=== PATIENT | female | born 1970 | race Caucasian/White ===

== ENCOUNTER → 2018-02-16 14:06 | Outpatient (CLI) | payer OTHER, SELFPAY ==
--- NOTE | 2018-02-16 14:12 | RAD_ITS ---
STUDY: X-RAY - LUMBAR SPINE REASON FOR EXAM: Female, 47 years old. Low back pain x1 month TECHNIQUE: 5 view(s) of the lumbar spine were obtained. COMPARISON: None FINDINGS: Normal lumbar lordosis. There is a mild levoscoliosis of the lumbar spine. There is a normal alignment of the vertebrae in the lateral view. Normal vertebral bodies and endplates. Normal disc space heights. The soft tissue structures are unremarkable. RAD/L/S Spine Min 4 Views IMPRESSION: No acute findings Levoscoliosis Electronically Signed: Andreas Fuentes MD at 13:49 EDT , Service support ,
== END ==
PROVIDERS: Family Provider Family Medicine; PCP Family Medicine; Referring Provider Family Medicine; Visit Provider Family Medicine
DX: M54.41 Lumbago with sciatica, right side (principal)
CPT/HCPCS: 72110

== ENCOUNTER 2018-04-15 10:30 | Outpatient (RCR) | payer OTHER, SELFPAY ==
--- NOTE | 2018-02-19 07:46 | HP.PTEVAL ---
Patient's Visit Information BRANDY SIMS is a 47 year old F referred to Physical Therapy by Deyvi Sam with a diagnosis of RIGHT LUMAGO WITH SCIATICA. Date of Evaluation: 02/18/18 Physical Therapist: Carlo Alvarado PT, - Visit Plan Frequency: 2x /Week Duration: 4 Weeks Plan: MCKEZIE EX'S WITH PROGRESSION OF FORCES ,PROGRESS DLS ABD/BACK ,POSTURAL EX'S,MODALITIES - Subjective Subjective: This 47 y/o male presents to physical terapy with right lumbago with scitica . Patient has had symptoms for 2 months with incdious onset of pain .Then 2weeks ago symptoms became worse located right L-S anterior thigh below knee to foot. Symptoms worse walking sitting,bending,lifting.Symptoms better gabepetin. Patient symptoms affects sleeping. Symptoms increase with coughing/sneezing. Denies parathesia/tingling.Symptoms described as ache. Patient seen DR and had x-rays. Patient symptoms affect QOL,job demands and housework tasks. 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 SOCAIL : - Pain Right Back Pain Intensity (Out of 10): 4 Pain Intensity Range: 10 Right Lower Extremity Pain Intensity (Out of 10): 4 Pain Intensity Range: 10 - Objective POSTURE:mild foward posture. PALPATION:unremarkable. GAIT: mild antalgic right leg slow chano due to pain. NEURO: denies parathesia/tingling ,reflexes L3-4,L4-5,L5-S1 2/3. MMT: quads right 4-/5 with ANR, hams 4/5 ,quads left,ankle 4/5. LUMBAR ROM: flexion mod loss pain,extension min ,side glides min loss pain to right. SYMMTRIES: aligns. FLEXABLITY: min hams - Special Tests L/S Slump test left side: Positive L/S Slump test right side: Negative L/S Left Straight Leg Raise: Negative L/S Right Straight Leg Raise: Positive Lumbar Standing: Flexion - Mechanical Response: No effect Lumbar Standing: Flexion - Symptoms During Testing: Increases Lumbar Standing: Flexion - Symptoms After Testing: Worse Lumbar Standing: Extension - Mechanical Response: No effect Lumbar Standing: Extension - Symptoms During Testing: Decreases Lumbar Standing: Extension - Symptoms After Testing: Better Lumbar Standing: Right Side Glides - Mechanical Response: No effect Lumbar Standing: Right Side [place] - Symptoms During Testing: Increases Lumbar Standing: Right Side [place] - Symptoms After Testing: No worse Lumbar Standing: Left Side [place] - Mechanical Response: No effect Lumbar Standing: Left Side [place] - Symptoms During Testing: Increases Lumbar Standing: Left Side [place] - Symptoms After Testing: No worse Lumbar Lying: Flexion - Mechanical Response: No effect Lumbar Lying: Flexion - Symptoms During Testing: Increases Lumbar Lying: Flexion - Symptoms After Testing: Worse Lumbar Lying: Extension - Mechanical Response: Increases motion Lumbar Lying: Extension - Symptoms During Testing: Centralizing Lumbar Lying: Extension - Symptoms After Testing: Better - Goals Goal 1:: Indenpandant with HEP. Goal Time Frame: 4-6 Weeks Goal 2:: Independant with posture/boday mechanics Goal Time Frame: 4-6 Weeks Goal 3:: Patient to improve lumbar ROM for function of recovery Goal Time Frame: 4-6 Weeks Goal 4:: Patient decrease lumbar pain by 75% or greater to improve function. Goal Time Frame: 4-6 Weeks Goal 5:: Patient to improve back owestry score 5-10points to improve QOL. Goal Time Frame: 4-6 Weeks - Rehabilitation Potential Physical Therapy Diagnosis: This patient has derrangement below knee possibel disc responds with symptoms worse with flexion responds better with extension and mechanical response with extension and posture correction thus benifit from skilled Rehabilitation Potential: Good - Anticipated Interventions Patient/Client Instruction: Educate patient on: Condition, Plan of Care For the Purpose of:: To decrease pain, To increase ROM, To improve muscle performance and motor function, To increase tolerance to activity/condition/position, To improve ability of physical actions for home/community/work/leisure, To improve gait and locomotor functions, To improve health of tissue, To decrease soft tissue restriction, To increase flexibility/ROM, To reduce risk of recurrence, To improve ability to perform tasks related to life management Therapeutic Exercise to Include: Strength training, Body mechanics, Postural training, Flexibilty training, Dynamic Lumbar Stabilization For the Purpose of:: To decrease pain, To increase ROM, To improve muscle performance and motor function, To improve ability of physical actions for home/community/work/leisure, To improve health of tissue, To decrease soft tissue restriction, To increase flexibility/ROM, To improve health and function, To improve ability to perform tasks related to life management Manual Therapy Techniques to Include: Mobilization Comment: LUMBAR For the Purpose of:: To decrease pain, To increase ROM, To improve muscle performance and motor function, To increase tolerance to activity/condition/position, To improve ability of physical actions for home/community/work/leisure, To improve health of tissue, To decrease soft tissue restriction, To increase flexibility/ROM TENS: Yes IF ES: Yes Cryotherapy (ice pack, ice massage): Yes Thermo therapy (hot pack): Yes Ultrasound (thermal/non thermal): Yes For the Purpose of:: To decrease pain, To decrease swelling/inflammation, To improve nutrient delivery to tissue, To increase oxygenation perfusion, To improve health of tissue, To decrease soft tissue restriction Thank you for the opportunity to evaluate your patient. For Medicare and Medicare HMO plans, please review the plan of care and approve it. It will need to be FAXED BACK to us at [phone] for Medicare purposes. Please let me know if there are questions or concerns regarding this plan of care. Physician Signature: Date:
--- NOTE | 2018-04-15 10:56 | HP.PTDCSUM ---
HP - PT D/C Summary It has been my pleasure to treat BENNETT SIMS under orders from Jaspal Sam MD, for the diagnosis of RIGHT LUMAGO WITH SCIATICA for a total of 17 visit(s). Discharge Date: Please see the following information for a summary of their discharge status. - Subjective Subjective: DOING WELL .. NO PAIN RETURN TO FUNCTION - Pain Right Back Pain Intensity (Out of 10): 0 Right Lower Extremity Pain Intensity (Out of 10): 0 - Overall Improvement % Improvement: 75 - Objective Objective/Function: POSTURE:WFL. GAIT:NORMAL MEENU. MMT: /. LUMBAR ROM: WNL ALL PALNES. -SLR - Goals Goal 1:: Indenpandant with HEP. Goal Progress: Goal Met Goal 2:: Independant with posture/boday mechanics Goal Progress: Goal Met Goal 3:: Patient to improve lumbar ROM for function of recovery Goal Progress: Goal Met Goal 4:: Patient decrease lumbar pain by 75% or greater to improve function. Goal Progress: Goal Met Goal 5:: Patient to improve back owestry score 5-10points to improve QOL. Goal Progress: Goal Met - Plan Plan: D/C TO HEP - D/C Information If there are questions or concerns regarding this patient's physical therapy, please feel free to call me at [phone]. Thank you for the referral of this patient. Sincerely, Carlo Alvarado, PT, Cert MDT, OCS
== END 2018-04-15 19:00 | disposition home or self-care (01) ==
LOC: PT 10:30
PROVIDERS: Family Provider Family Medicine; PCP Family Medicine; Referring Provider Family Medicine; Visit Provider Family Medicine
DX: M54.41 Lumbago with sciatica, right side (principal)
CPT/HCPCS: 97014; 97032; 97035; 97110; 97162; 97530; G0283

== ENCOUNTER → 2018-10-07 | Outpatient (CLI) | payer OTHER, SELFPAY ==
--- NOTE | 2018-10-07 07:57 | BI_ITS ---
MAMMOGRAPHY - BILATERAL SCREENING REASON FOR EXAM: Female, 47 years old. Routine annual screening examination. PERTINENT HISTORY: Grandmother with breast cancer. TECHNIQUE: Digital bilateral breast dipak (3D mammographic acquisition) in the CC and MLO projections. 2-D mediolateral oblique (MLO) and craniocaudad (CC) views of both breasts were obtained. CAD: Full Field Digital Mammography with Computer Added Detection was performed. COMPARISON: Comparison is made with prior study to July 14, 2016 and February 25, 2013. FINDINGS: Breast Composition: The breasts are heterogeneously dense, which may obscure small masses. There are no dominant masses or suspicious calcifications. Stable small bilateral benign appearing axillary lymph nodes. No other significant abnormalities are identified. There has been no significant change since the prior study. BI/SCREEN MAMM (CAD) W/DIPAK BILAT IMPRESSION: Stable bilateral screening mammogram. Yearly follow-up mammogram recommended. (A) ASSESSMENT CATEGORY: BIRADS Category 2: Benign. A letter regarding these results will be sent to the patient by the facility within 30 days. Approximately 10% of breast cancers are not detected by mammography. A normal mammogram should not delay biopsy of a clinically suspicious abnormality. [id number] Electronically Signed: Jameel Chau, at 9:03 EDT , Service support ,
== END | disposition home or self-care (01) ==
LOC: OPBI 07:55
PROVIDERS: Family Provider Family Medicine; PCP Family Medicine; Referring Provider Family Medicine; Visit Provider Family Medicine
DX: Z00.00 Encounter for general adult medical examination without abnormal findings (principal); Z12.31 Encounter for screening mammogram for malignant neoplasm of breast
CPT/HCPCS: 77063; 77067

== ENCOUNTER → 2018-11-18 | Outpatient (CLI) | payer OTHER, SELFPAY ==
[2015-03-20 11:13] VITALS: BMI 29.2
[2018-11-18 12:35] LABS: Hematocrit 42.1 % (37-47); Hemoglobin 13.9 g/dL (12.0-15.0); Mean Corpuscular Hgb 28.7 pg (27.0-32.0); Mean Platelet Vol. 11.5 fl (6.2-12.0); Platelet Count 356 K/mm3 (150-450); RBC Distribution Width CV 12.9 % (11.6-14.6); RBC Distribution Width SD 40.5 fl (35.1-43.9); Red Blood Count 4.84 M/mm3 (4.2-5.4); White Blood Count 7.7 K/mm3 (4.4-11.0)
[2018-11-18 13:05] LABS: Vitamin D,25 Hydroxy 66.3 ng/mL (29.95-100.01)
[2018-11-18 13:21] LABS: Anion Gap 4 (5-15); BUN 14 mg/dL (7-18); Calcium,Total 9.2 mg/dL (8.5-10.1); Chloride 105 mmol/L (98-107); Cholesterol 258 mg/dL (200); Creatinine, Serum 0.74 mg/dL (0.55-1.02); EST Glomerular Filtration Rate 90 mL/min (>60); Est Glom Filt Rate - Afr Amer 109 mL/min (>60); Glucose 84 mg/dL (74-106); High Density Lipoprotein 73 mg/dL; Potassium 3.9 mmol/L (3.5-5.1); Sodium Level 137 mmol/L (136-145); Thyroid Stim Hormone (TSH) 0.91 uIU/mL (0.358-3.74); Triglycerides 177 mg/dL; Very Low Density Lipoprotein 35 mg/dL (5-40)
== END | disposition home or self-care (01) ==
PROVIDERS: Family Provider Family Medicine; PCP Family Medicine; Referring Provider Family Medicine; Visit Provider Family Medicine
DX: Z00.00 Encounter for general adult medical examination without abnormal findings (principal); Z13.1 Encounter for screening for diabetes mellitus; Z13.220 Encounter for screening for lipoid disorders; Z13.29 Encounter for screening for other suspected endocrine disorder; Z13.21 Encounter for screening for nutritional disorder; N39.0 Urinary tract infection, site not specified
CPT/HCPCS: 36415; 80048; 80061; 82306; 84443; 85027; 87086; 87088

== ENCOUNTER → 2019-05-11 08:01 | Outpatient (CLI) | payer OTHER, SELFPAY ==
[2019-05-11 10:02] LABS: Absolute Neutrophil Count 3.9 X10^3/uL (2.0-7.7); Basophil# 0.05 X10^3/uL; Basophil% 0.8 % (0-1); Eosinophils% 1.6 % (0-5); Hematocrit 42.1 % (37-47); Hemoglobin 12.9 g/dL (12.0-15.0); Lymphocyte % 25.6 % (19-41); Mean Corp Hgb Conc 30.6 g/dL (32-36); Mean Corpuscular Hgb 26.9 pg (27.0-32.0); Mean Corpuscular Volume 87.9 fL (81-99); Mean Platelet Vol. 11.2 fl (6.2-12.0); Monocyte# 0.58 X10^3/uL; Monocyte% 9.3 % (0-10); NRBC Flagged by Analyzer 0 % (0-5); Neutrophil % 62.2 % (47-70); Platelet Count 353 K/mm3 (150-450); RBC Distribution Width SD 41.8 fl (35.1-43.9); Red Blood Count 4.79 M/mm3 (4.2-5.4); White Blood Count 6.3 K/mm3 (4.4-11.0)
[2019-05-11 10:21] LABS: AST(SGOT) 16 U/L (15-37); Alanine Aminotransfer ALT/SGPT 37 U/L (13-56); Albumin, Serum 3.6 g/dL (3.2-5.0); Alkaline Phosphatase 84 U/L (45-117); Anion Gap 5 (5-15); BUN 18 mg/dL (7-18); BUN/Creat Ratio 22.9 RATIO (10-20); Calcium,Total 9.3 mg/dL (8.5-10.1); Chloride 109 mmol/L (98-107); Creatinine, Serum 0.79 mg/dL (0.55-1.02); EST Glomerular Filtration Rate 84 mL/min (>60); Est Glom Filt Rate - Afr Amer 101 mL/min (>60); Globulin 3.6 g/dL (2.2-4.2); Glucose 85 mg/dL (74-106); Potassium 4.2 mmol/L (3.5-5.1); Protein, Total 7.2 g/dL (6.4-8.2); Sodium Level 140 mmol/L (136-145)
== END ==
PROVIDERS: Family Medicine; PCP Family Medicine; Referring Provider Family Medicine; Visit Provider Family Medicine
DX: R16.1 Splenomegaly, not elsewhere classified (principal)
CPT/HCPCS: 36415; 80053; 85025

== ENCOUNTER → 2019-05-13 07:21 | Outpatient (CLI) | payer OTHER, SELFPAY ==
[2015-03-20 11:13] VITALS: BMI 29.2
--- NOTE | 2019-05-13 07:22 | US_ITS ---
STUDY: ABDOMINAL ULTRASOUND - RIGHT UPPER QUADRANT REASON FOR VISIT: Female, 48 years old SPLENOMEGALY TECHNIQUE: Ultrasound evaluation of the left upper quadrant was performed with real-time and static fernando-scale imaging. TECHNICAL QUALITY: Adequate. COMPARISON: None. FINDINGS: Spleen: The spleen measures 10.5 cm x 5.3 cm x 4.5 cm. This is within normal limits. No focal lesion is seen. Left Kidney: Normal size of the left kidney. The left kidney measures 9.7 cm x 4.9 cm by 4.3 cm. Normal renal cortex. The left cortex measures 1.5 cm. There is a 1 cm x 1 cm x 1.1 cm cyst. There is no right hydronephrosis. US/Spleen IMPRESSION: Normal splenic sonogram. Left renal cyst. Electronically Signed: Jameel Chau, at 15:34 EST , Service support ,
== END ==
PROVIDERS: PCP Family Medicine; Referring Provider Family Medicine; Visit Provider Family Medicine
DX: R16.1 Splenomegaly, not elsewhere classified (principal)
CPT/HCPCS: 76705

== ENCOUNTER → 2019-11-28 15:25 | Outpatient (CLI) | payer OTHER, SELFPAY ==
[2015-03-20 11:13] VITALS: BMI 29.2
[2019-12-01 12:55] LABS: HPV Reflexed? NOT INDICATED
== END ==
PROVIDERS: PCP Family Medicine; Visit Provider Family Medicine
DX: Z01.419 Encounter for gynecological examination (general) (routine) without abnormal findings (principal)
CPT/HCPCS: 88175; G0145

== ENCOUNTER → 2019-12-09 07:05 | Outpatient (CLI) | payer OTHER, SELFPAY ==
--- NOTE | 2019-12-09 07:07 | BI_ITS ---
MAMMOGRAPHY - BILATERAL SCREENING 3-D TOMOSYNTHESIS REASON FOR EXAM: Female, 49 years old. Annual screening mammogram. PERTINENT HISTORY: No significant family history. TECHNIQUE: 2-D mammograms and 3-D Tomosynthesis of the breast (s) were performed. CAD was performed. COMPARISON: 10/07/2018, 07/14/2016 FINDINGS: The breast composition is composed of scattered fibroglandular density. Scattered benign calcifications are seen. No dense spiculated masses or suspicious microcalcifications are identified. No architectural distortion is identified. There is no skin thickening or retraction. There has been no significant change since the prior study. BI/SCREEN MAMM (CAD) W/DIPAK BILAT IMPRESSION: No mammographic signs of malignancy. Routine yearly mammograms recommended. ASSESSMENT CATEGORY: BIRADS Category 1: Negative. A letter regarding these results will be sent to the patient by the facility within 30 days. FOLLOW UP RECOMMENDATION: Yearly follow up mammogram recommended. (A) Approximately 10% of breast cancers are not detected by mammography. A normal mammogram should not delay biopsy of a clinically suspicious abnormality. Electronically Signed: Dustin Simon MD at 15:44 EDT , Service support ,
== END ==
PROVIDERS: PCP Family Medicine; Referring Provider Nurse Practitioner Family; Visit Provider Nurse Practitioner Family
DX: Z12.31 Encounter for screening mammogram for malignant neoplasm of breast (principal)
CPT/HCPCS: 77063; 77067

== ENCOUNTER → 2020-03-28 12:40 | Outpatient (CLI) | payer OTHER, SELFPAY ==
[2015-03-20 11:13] VITALS: BMI 29.2
--- NOTE | 2020-03-28 12:44 | RAD_ITS ---
STUDY: X-RAY - ABDOMEN/PELVIS REASON FOR EXAM: Female, 49 years old. lower pelvic pain, some constipation TECHNIQUE: AP supine and upright views of the abdomen and pelvis. COMPARISON: None. FINDINGS: Normal visualized lung bases. Nondistended stomach and small bowel. Stool is present throughout the colon to the level of the lower colon without substantial distention. Negative for gross organomegaly, abdominal or pelvic calcifications. Normal soft tissue structures. Mild levoscoliosis of the thoracolumbar spine RAD/Abd Inc Decub and/or Erect IMPRESSION: Substantial stool present throughout the colon consistent with constipation without other acute abdominal or pelvic findings. Electronically Signed: Lurdes Lewis MD at 23:55 EST , Service support ,
[2020-03-28 12:48] LABS: Mucous, Urine 0 SEEN /hpf (<or=2+); Red Blood Cells-Urine 0 SEEN /hpf (0-5)
[2020-03-28 15:49] LABS: ALB/GLOB Ratio 0.6 RATIO (0.9-2.4); AST(SGOT) 59 U/L (15-37); Alanine Aminotransfer ALT/SGPT 115 U/L (13-56); Albumin, Serum 3.1 g/dL (3.2-5.0); Alkaline Phosphatase 441 U/L (45-117); Amylase 64 U/L (25-115); Anion Gap 8 (5-15); BUN 10 mg/dL (7-18); Calcium,Total 9.7 mg/dL (8.5-10.1); Chloride 100 mmol/L (98-107); Cholesterol 226 mg/dL (200); Creatinine, Serum 0.77 mg/dL (0.55-1.02); EST Glomerular Filtration Rate 86 mL/min (>60); Est Glom Filt Rate - Afr Amer 104 mL/min (>60); Glucose 77 mg/dL (74-106); High Density Lipoprotein 66 mg/dL; Lipase 158 U/L (73-393); Potassium 3.7 mmol/L (3.5-5.1); Protein, Total 8.1 g/dL (6.4-8.2); Sodium Level 136 mmol/L (136-145); Triglycerides 83 mg/dL; Very Low Density Lipoprotein 17 mg/dL (5-40)
[2020-03-28 16:00] LABS: Color, Urine Yellow (Yellow); Glucose, Dipstick Normal (Normal); Ketone-Dipstick 5 mg/dl (Negative); Leukocyte Esterase-Dipstick 25 /ul (Negative); Nitrite-Dipstick Negative (Negative); Occult Blood-Urine Negative /ul (Negative); Protein-Dipstick 30 mg/dl (Negative); Specific Gravity, Urine 1.015 (1.002-1.030); Urine Clarity Clear (Clear); Urine Urobilinogen 1 mg/dl (Normal)
[2020-03-28 16:20] LABS: Urine Bilirubin Dipstick 1 mg/dL (Negative)
[2020-03-28 16:22] LABS: Bacteria 1+ /hpf (None Seen); Hyaline Cast 0-5 SEEN /lpf (0-5); Squamous Epithelial Cells - UA 0-5 SEEN /hpf (5-10); White Blood Cells 0-5 SEEN /hpf (0-5)
[2020-03-28 16:59] LABS: Erythrocyte Sedimentation Rate 31 mm/hr (0-20)
[2020-03-28 17:09] LABS: Absolute Neutrophil Count 12.7 X10^3/uL (2.0-7.7); Basophil# 0.06 X10^3/uL; Basophil% 0.4 % (0-1); Eosinophil# 0.09 X10^3/uL; Eosinophils% 0.6 % (0-5); Hematocrit 38.7 % (37-47); Hemoglobin 11.7 g/dL (12.0-15.0); Lymphocyte % 9.8 % (19-41); Mean Corp Hgb Conc 30.2 g/dL (32-36); Mean Corpuscular Hgb 26.4 pg (27.0-32.0); Mean Corpuscular Volume 87.4 fL (81-99); Mean Platelet Vol. 10.7 fl (6.2-12.0); Monocyte# 1.77 X10^3/uL; Monocyte% 10.8 % (0-10); NRBC Flagged by Analyzer 0 % (0-5); Neutrophil # 12.65 X10^3/uL (2.7-7.7); Neutrophil % 77.4 % (47-70); POSITIVE DIFFERENTIAL YES; Platelet Count 608 K/mm3 (150-450); RBC Distribution Width CV 12.5 % (11.6-14.6); RBC Distribution Width SD 40.1 fl (35.1-43.9); Red Blood Count 4.43 M/mm3 (4.2-5.4); White Blood Count 16.3 K/mm3 (4.4-11.0)
[2020-03-28 17:10] LABS: Differential Indicated SCAN CRITERIA MET
[2020-03-28 18:03] LABS: Platelet Estimate MOD INC (ADEQ)
[2020-03-29 12:06] LABS: Pathologist Review Reviewed
== END ==
PROVIDERS: PCP Family Medicine; Referring Provider Family Medicine; Visit Provider Family Medicine
DX: K59.00 Constipation, unspecified (principal); R10.9 Unspecified abdominal pain; Z13.220 Encounter for screening for lipoid disorders
CPT/HCPCS: 36415; 74019; 80053; 80061; 81001; 82150; 83690; 84443; 85025; 85652; 86140; 87086

== ENCOUNTER → 2020-03-29 09:00 | Outpatient (CLI) | payer OTHER, SELFPAY ==
--- NOTE | 2020-03-29 09:23 | CT_ITS ---
STUDY: CT ABDOMEN AND PELVIS WITH CONTRAST REASON FOR EXAM: Female, 49 years old. Pelvic pain x 3 weeks, elevated WBC. Prior cholecystectomy. RADIATION DOSAGE (If Supplied By Facility): CTDIvol = ( 16.10 ) mGy, DLP = ( 753.99 ) mGycm TECHNIQUE: Transaxial images were obtained from the dome of the diaphragm to the symphysis pubis without oral contrast. Oral and amp; IV Gastrografin and amp; 100mL Isovue-300 was administered. Sagittal and coronal images were reconstructed. Individualized dose optimization techniques were used for this CT. COMPARISON: None. FINDINGS: The visualized lung bases are unremarkable. The visualized portions of the heart are within normal limits. Normal liver. The patient is status post cholecystectomy. There is mild splenomegaly. Normal pancreas. Normal bilateral adrenal glands. Normal right kidney. Normal left kidney. There is a moderate-sized knee effusion is examination hiatal hernia. Normal small intestine. There is diverticulosis, with thickening of the colon wall, and pericolonic inflammation changes consistent with acute diverticulitis. The appendix is visualized and appears normal. Normal abdominal aorta. Normal inferior vena cava. There is borderline retroperitoneal lymphadenopathy with enlarged nodes no greater than 10mm in the short axis diameter. Normal urinary bladder. 2.5 cm x 2.3 cm right ovarian cyst. There is a small umbilical hernia containing fat. Normal osseous structures. CT/Abdomen/Pelvis WITH Contrast IMPRESSION: Findings in keeping with acute sigmoid diverticulitis. Minimal amount of free fluid is seen in the pelvis. Small right ovarian cyst. Moderate sized hiatal hernia. Electronically Signed: Jameel Chau, at 12:05 EST , Service support ,
== END ==
PROVIDERS: PCP Family Medicine; Visit Provider Family Medicine
DX: R10.2 Pelvic and perineal pain (principal)
CPT/HCPCS: 74177; Q9967; A4216

== ENCOUNTER → 2020-04-10 09:15 | Outpatient (CLI) | payer OTHER, SELFPAY ==
[2015-03-20 11:13] VITALS: BMI 29.2
[2020-04-10 12:36] LABS: Erythrocyte Sedimentation Rate 56 mm/hr (0-20)
[2020-04-10 12:38] LABS: Absolute Lymphocyte Count 1.34 X10^3/uL (0.83-4.51); Absolute Neutrophil Count 8.4 X10^3/uL (2.0-7.7); Basophil# 0.07 X10^3/uL; Basophil% 0.7 % (0-1); Eosinophil# 0.13 X10^3/uL; Eosinophils% 1.2 % (0-5); Hematocrit 35.2 % (37-47); Hemoglobin 10.9 g/dL (12.0-15.0); Lymphocyte # 1.34 X10^3/ul (4.0); Lymphocyte % 12.5 % (19-41); Mean Corpuscular Hgb 26.5 pg (27.0-32.0); Mean Corpuscular Volume 85.6 fL (81-99); Mean Platelet Vol. 10.4 fl (6.2-12.0); Monocyte# 0.73 X10^3/uL; Monocyte% 6.8 % (0-10); NRBC Flagged by Analyzer 0 % (0-5); Neutrophil # 8.42 X10^3/uL (2.7-7.7); Neutrophil % 78.3 % (47-70); Platelet Count 526 K/mm3 (150-450); RBC Distribution Width CV 13.8 % (11.6-14.6); RBC Distribution Width SD 42.4 fl (35.1-43.9); Red Blood Count 4.11 M/mm3 (4.2-5.4); White Blood Count 10.7 K/mm3 (4.4-11.0)
[2020-04-10 12:39] LABS: ALB/GLOB Ratio 0.7 RATIO (0.9-2.4); AST(SGOT) 22 U/L (15-37); Alanine Aminotransfer ALT/SGPT 39 U/L (13-56); Albumin, Serum 3.1 g/dL (3.2-5.0); Alkaline Phosphatase 196 U/L (45-117); Anion Gap 7 (5-15); BUN 10 mg/dL (7-18); BUN/Creat Ratio 14.7 RATIO (10-20); Chloride 103 mmol/L (98-107); Creatinine, Serum 0.68 mg/dL (0.55-1.02); EST Glomerular Filtration Rate 98 mL/min (>60); Est Glom Filt Rate - Afr Amer 119 mL/min (>60); Globulin 4.5 g/dL (2.2-4.2); Glucose 78 mg/dL (74-106); Potassium 3.9 mmol/L (3.5-5.1); Protein, Total 7.6 g/dL (6.4-8.2); Sodium Level 137 mmol/L (136-145)
== END ==
PROVIDERS: PCP Family Medicine; Referring Provider Family Medicine; Visit Provider Family Medicine
DX: K57.92 Diverticulitis of intestine, part unspecified, without perforation or abscess without bleeding (principal)
CPT/HCPCS: 36415; 80053; 85025; 85652; 86140

== ENCOUNTER → 2020-04-24 16:12 | Outpatient (CLI) | payer OTHER, SELFPAY ==
[2015-03-20 11:13] VITALS: BMI 29.2
[2020-04-24 18:05] LABS: Erythrocyte Sedimentation Rate 41 mm/hr (0-30)
[2020-04-24 18:06] LABS: Absolute Lymphocyte Count 1.83 X10^3/uL (0.83-4.51); Absolute Neutrophil Count 4.4 X10^3/uL (2.0-7.7); Basophil# 0.07 X10^3/uL; Eosinophil# 0.16 X10^3/uL; Eosinophils% 2.2 % (0-5); Hematocrit 36.8 % (37-47); Hemoglobin 11.5 g/dL (12.0-15.0); Lymphocyte # 1.83 X10^3/ul (4.0); Lymphocyte % 25.5 % (19-41); Mean Corp Hgb Conc 31.3 g/dL (32-36); Mean Corpuscular Hgb 26.7 pg (27.0-32.0); Mean Corpuscular Volume 85.4 fL (81-99); Monocyte# 0.66 X10^3/uL; Monocyte% 9.2 % (0-10); NRBC Flagged by Analyzer 0 % (0-5); Neutrophil # 4.42 X10^3/uL (2.7-7.7); Neutrophil % 61.5 % (47-70); Platelet Count 394 K/mm3 (150-450); RBC Distribution Width CV 14.6 % (11.6-14.6); RBC Distribution Width SD 45.9 fl (35.1-43.9); Red Blood Count 4.31 M/mm3 (4.2-5.4); White Blood Count 7.2 K/mm3 (4.4-11.0)
== END ==
PROVIDERS: PCP Family Medicine; Referring Provider Family Medicine; Visit Provider Family Medicine
DX: K57.92 Diverticulitis of intestine, part unspecified, without perforation or abscess without bleeding (principal)
CPT/HCPCS: 36415; 85025; 85652; 86140

== ENCOUNTER → 2020-05-21 12:23 | Outpatient (CLI) | payer OTHER, SELFPAY ==
[2015-03-20 11:13] VITALS: BMI 29.2
[2020-05-21 15:31] LABS: Absolute Lymphocyte Count 1.61 X10^3/uL (0.83-4.51); Absolute Neutrophil Count 6.6 X10^3/uL (2.0-7.7); Basophil# 0.08 X10^3/uL; Basophil% 0.9 % (0-1); Eosinophil# 0.08 X10^3/uL; Eosinophils% 0.9 % (0-5); Hematocrit 40.7 % (37-47); Hemoglobin 13.7 g/dL (12.0-15.0); Lymphocyte # 1.61 X10^3/ul (4.0); Lymphocyte % 17.5 % (19-41); Mean Corp Hgb Conc 33.7 g/dL (32-36); Mean Corpuscular Hgb 29.5 pg (27.0-32.0); Mean Corpuscular Volume 87.5 fL (81-99); Mean Platelet Vol. 11.1 fl (6.2-12.0); Monocyte% 8.7 % (0-10); NRBC Flagged by Analyzer 0 % (0-5); Neutrophil # 6.59 X10^3/uL (2.7-7.7); Neutrophil % 71.6 % (47-70); Platelet Count 351 K/mm3 (150-450); RBC Distribution Width CV 17.5 % (11.6-14.6); RBC Distribution Width SD 47.8 fl (35.1-43.9); Red Blood Count 4.65 M/mm3 (4.2-5.4); White Blood Count 9.2 K/mm3 (4.4-11.0)
[2020-05-21 15:37] LABS: Erythrocyte Sedimentation Rate 27 mm/hr (0-30)
[2020-05-21 16:05] LABS: ALB/GLOB Ratio 0.8 RATIO (0.9-2.4); AST(SGOT) 17 U/L (15-37); Alanine Aminotransfer ALT/SGPT 31 U/L (13-56); Albumin, Serum 3.6 g/dL (3.2-5.0); Alkaline Phosphatase 106 U/L (45-117); Anion Gap 5 (5-15); BUN 9 mg/dL (7-18); BUN/Creat Ratio 11.7 RATIO (10-20); CRP 4.65 mg/L (0.0-3.0); Calcium,Total 9.3 mg/dL (8.5-10.1); Chloride 105 mmol/L (98-107); Creatinine, Serum 0.77 mg/dL (0.55-1.02); EST Glomerular Filtration Rate 85 mL/min (>60); Est Glom Filt Rate - Afr Amer 103 mL/min (>60); Follicle Stimulating Hormone 11.1 mIU/mL; Globulin 4.3 g/dL (2.2-4.2); Glucose 77 mg/dL (74-106); Protein, Total 7.9 g/dL (6.4-8.2); Sodium Level 137 mmol/L (136-145)
== END ==
LOC: MFPLAB 12:31
PROVIDERS: PCP Family Medicine; Referring Provider Family Medicine; Visit Provider Family Medicine
DX: N92.6 Irregular menstruation, unspecified (principal); K57.92 Diverticulitis of intestine, part unspecified, without perforation or abscess without bleeding
CPT/HCPCS: 36415; 80053; 83001; 83002; 85025; 85652; 86140

== ENCOUNTER → 2021-02-08 07:03 | Outpatient (CLI) | payer OTHER, SELFPAY ==
[2021-02-08 10:19] LABS: Vitamin D,25 Hydroxy 74.2 ng/mL
[2021-02-08 10:44] LABS: ALB/GLOB Ratio 0.9 RATIO (0.9-2.4); AST(SGOT) 20 U/L (15-37); Alanine Aminotransfer ALT/SGPT 38 U/L (13-56); Albumin, Serum 3.5 g/dL (3.2-5.0); Alkaline Phosphatase 97 U/L (45-117); Anion Gap 6 (5-15); BUN 17 mg/dL (7-18); BUN/Creat Ratio 20.6 RATIO (10-20); Calcium,Total 9.2 mg/dL (8.5-10.1); Chloride 106 mmol/L (98-107); Cholesterol 300 mg/dL (200); Creatinine, Serum 0.82 mg/dL (0.55-1.02); EST Glomerular Filtration Rate 79 mL/min (>60); Est Glom Filt Rate - Afr Amer 95 mL/min (>60); Glucose 91 mg/dL (74-106); High Density Lipoprotein 87 mg/dL; Potassium 3.9 mmol/L (3.5-5.1); Protein, Total 7.5 g/dL (6.4-8.2); Sodium Level 139 mmol/L (136-145); Thyroid Stim Hormone (TSH) 1.28 uIU/mL (0.358-3.74); Triglycerides 99 mg/dL; Very Low Density Lipoprotein 20 mg/dL (5-40)
== END ==
PROVIDERS: PCP Family Medicine; Referring Provider Family Medicine; Visit Provider Family Medicine
DX: E55.9 Vitamin D deficiency, unspecified (principal); Z13.220 Encounter for screening for lipoid disorders; K59.00 Constipation, unspecified; Z13.29 Encounter for screening for other suspected endocrine disorder
CPT/HCPCS: 36415; 80053; 80061; 82306; 84443

== ENCOUNTER → 2021-03-01 | Outpatient (CLI) | payer OTHER, SELFPAY ==
[2021-03-08 09:05] LABS: HPV Reflexed? NOT INDICATED
== END | disposition home or self-care (01) ==
PROVIDERS: PCP Family Medicine; Visit Provider Registered Nurse
DX: Z12.4 Encounter for screening for malignant neoplasm of cervix (principal)
CPT/HCPCS: 88175; G0145

== ENCOUNTER → 2021-03-19 | Outpatient (CLI) | payer OTHER, SELFPAY | END | disposition home or self-care (01) | PROVIDERS: PCP Family Medicine; Visit Provider Registered Nurse | DX: U07.1 COVID-19 (principal) | CPT/HCPCS: 87635; U0005; U0003 ==

== ENCOUNTER → 2021-04-16 07:43 | Outpatient (CLI) | payer OTHER, SELFPAY ==
--- NOTE | 2021-04-16 07:48 | BI_ITS ---
MAMMOGRAPHY - BILATERAL SCREENING 3-D TOMOSYNTHESIS REASON FOR EXAM: Female, 50 years old. SCREENING PERTINENT HISTORY: No significant family history. TECHNIQUE: 2-D mammograms and 3-D Tomosynthesis of the breast (s) were performed. CAD was performed. COMPARISON: 12/09/2019 FINDINGS: The breast composition is composed of scattered fibroglandular density. Scattered benign calcifications are seen. No dense spiculated masses or suspicious microcalcifications are identified. No architectural distortion is identified. There is no skin thickening or retraction. There has been no significant change since the prior study. BI/SCRN MAMM (CAD)W/DIPAK BILAT IMPRESSION: No mammographic signs of malignancy. Routine yearly mammograms recommended. ASSESSMENT CATEGORY: BIRADS Category 1: Negative. A letter regarding these results will be sent to the patient by the facility within 30 days. FOLLOW UP RECOMMENDATION: Yearly follow up mammogram recommended. (A) Approximately 10% of breast cancers are not detected by mammography. A normal mammogram should not delay biopsy of a clinically suspicious abnormality. Electronically Signed: Dre Morales MD at 9:17 EST Tel , Service support ,
== END ==
PROVIDERS: PCP Family Medicine; Referring Provider Family Medicine; Visit Provider Family Medicine
DX: Z12.31 Encounter for screening mammogram for malignant neoplasm of breast (principal)
CPT/HCPCS: 77063; 77067

== ENCOUNTER 2021-06-25 17:20 | Outpatient (CLI) | payer OTHER, SELFPAY ==
--- NOTE | 2021-06-25 17:23 | RAD_ITS ---
STUDY: X-RAY CHEST REASON FOR EXAM: Female, 50 years old. COVID TECHNIQUE: PA and lateral views of the chest. COMPARISON: None. FINDINGS: The lungs are clear and expanded. There is no demonstrated pleural abnormality. Normal size heart. Normal mediastinum and bisi. Normal visualized pulmonary arteries. Normal visualized aortic arch and descending thoracic aorta. Normal visualized thoracic spine. Normal visualized ribs, clavicles, and shoulders. There is no demonstrated abnormality of the visualized soft tissue structures of the upper abdomen. RAD/Chest PA and Lateral IMPRESSION: Normal x-ray examination of the chest. Electronically Signed: Patricia Montano MD at 2:10 EST Reading Location ID and State: [facility] / MD Tel , Service support ,
== END 2021-06-25 23:59 | disposition home or self-care (01) ==
LOC: MTRAD 17:22
PROVIDERS: PCP Family Medicine; Referring Provider Family Medicine; Visit Provider Family Medicine
DX: U07.1 COVID-19 (principal)
CPT/HCPCS: 71046

== ENCOUNTER → 2022-01-31 | Outpatient (CLI) | payer OTHER, SELFPAY ==
[2022-01-31 12:45] LABS: Hemoglobin 13.3 g/dL (12.0-15.0); Mean Corp Hgb Conc 32.4 g/dL (32-36); Mean Corpuscular Hgb 28.2 pg (27.0-32.0); Mean Corpuscular Volume 86.9 fL (81-99); Mean Platelet Vol. 11.2 fl (6.2-12.0); Platelet Count 332 K/mm3 (150-450); RBC Distribution Width CV 12.7 % (11.6-14.6); RBC Distribution Width SD 40.3 fl (35.1-43.9); Red Blood Count 4.72 M/mm3 (4.2-5.4)
[2022-01-31 13:17] LABS: ALB/GLOB Ratio 0.8 RATIO (0.9-2.4); AST(SGOT) 24 U/L (15-37); Alanine Aminotransfer ALT/SGPT 47 U/L (13-56); Albumin, Serum 3.3 g/dL (3.2-5.0); Alkaline Phosphatase 114 U/L (45-117); Anion Gap 6 (5-15); BUN 13 mg/dL (7-18); BUN/Creat Ratio 19.9 RATIO (10-20); Chloride 107 mmol/L (98-107); Cholesterol 284 mg/dL (200); Creatinine, Serum 0.65 mg/dL (0.55-1.02); EST Glomerular Filtration Rate 103 mL/min (>60); Est Glom Filt Rate - Afr Amer 124 mL/min (>60); Globulin 4.2 g/dL (2.2-4.2); Glucose 89 mg/dL (74-106); High Density Lipoprotein 92 mg/dL; Potassium 4.1 mmol/L (3.5-5.1); Protein, Total 7.5 g/dL (6.4-8.2); Sodium Level 139 mmol/L (136-145); Thyroid Stim Hormone (TSH) 0.85 uIU/mL (0.358-3.74); Triglycerides 69 mg/dL; Very Low Density Lipoprotein 14 mg/dL (5-40)
[2022-01-31 13:29] LABS: Vitamin D,25 Hydroxy 65.4 ng/mL
== END | disposition home or self-care (01) ==
LOC: MFPLAB 10:20
PROVIDERS: PCP Family Medicine; Referring Provider Family Medicine; Visit Provider Family Medicine
DX: F32.A Depression, unspecified (principal); R63.5 Abnormal weight gain; E78.5 Hyperlipidemia, unspecified
CPT/HCPCS: 36415; 80053; 80061; 82306; 82533; 84443; 85027

== ENCOUNTER 2022-03-10 16:00 | Outpatient (RCR) | payer OTHER, SELFPAY | END 2022-03-19 23:59 | LOC: NS 16:00 | PROVIDERS: PCP Family Medicine; Referring Provider Family Medicine; Visit Provider Family Medicine | DX: Z71.3 Dietary counseling and surveillance (principal); E66.9 Obesity, unspecified; Z68.31 Body mass index [BMI] 31.0-31.9, adult | CPT/HCPCS: 97802; 97803 ==

== ENCOUNTER 2022-04-09 11:30 | Outpatient (RCR) | payer OTHER, SELFPAY | END 2022-04-19 23:59 | LOC: NS 11:30 | PROVIDERS: PCP Family Medicine; Referring Provider Family Medicine; Visit Provider Family Medicine | DX: Z71.3 Dietary counseling and surveillance (principal); E66.9 Obesity, unspecified; Z68.31 Body mass index [BMI] 31.0-31.9, adult | CPT/HCPCS: 97803 ==

== ENCOUNTER 2022-04-25 09:10 | Emergency (ER) | payer OTHER, SELFPAY ==
[2022-04-25 09:11] VITALS: BP 162/88; PULSE 89; RESP 16; TEMP 36.6; O2SAT 100; BMI 28.8
[2022-04-25 09:22] VITALS: O2SAT 99
--- NOTE | 2022-04-25 09:25 | EKG12_ITS ---
Test Reason : SOB/CP Blood Pressure : / mmHG Vent. Rate : 065 BPM Atrial Rate : 065 BPM P-R Int : 158 ms QRS Dur : 082 ms QT Int : 416 ms P-R-T Axes : 027 -13 012 degrees QTc Int : 432 ms Normal sinus rhythm Normal ECG Confirmed by JENNIFER FUENTES, SANDY ([id number]), business editor RUSLAN GUERRERO ([id number]) on 04/28/2022 10:56:23 AM Referred By: Confirmed By:CNADICE RODRIGUEZ MD
--- NOTE | 2022-04-25 09:26 | EDS_ITS ---
HPI History of Present Illness Chief Complaint: Shortness of Breath Narrative Narrative: 51-year-old female past medical history of anxiety and hypercholesterolemia, non-smoker, presents with feeling of chest pressure and the feeling that she cannot catch her breath since 7:00 this morning, almost 2-1/2 hours ago. She and her relate history that their flight was canceled from [place], and they had to drive home a few days ago. She denies any leg swelling and they state that they were able to get out of their vehicle every so often and walk around. She felt like she had a pinched nerve in her neck which was relieved by massage, but this morning as she was driving to work, she felt chest heaviness and the feeling that she could not catch her breath. She denies any fevers or chills. No cough. She went to the nurse and she had elevated blood pressure in the 140s over 92. She presents for evaluation of her chest pressure and the feeling that she cannot catch her breath. She may have felt this way over the last few days intermittently, but is become relatively more constant. No family history of early heart attack, but she states her father had a stroke in his late 50s. [facility] Medical History (Updated 04/25/22 @ 12:33 by Teddy Andrade MD) Anxiety Home Medications Cholecalciferol (Vitamin D3) [Vitamin D3] 4,000 unit PO DAILY 03/19/15 [History Last Taken Unknown] bupropion HCl 150 mg tablet,12 hr sustained-release 150 mg PO DAILY 03/19/15 [History Last Taken Unknown] esomeprazole magnesium 20 mg capsule,delayed release (Nexium) 20 mg PO DAILY 03/19/15 [History Last Taken 03/20/15 08:30 20] oxycodone-acetaminophen 5 mg-325 mg tablet 1 - 2 tab PO Q4H PRN PRN Pain ##30 03/20/15 [Rx Last Taken Unknown] Allergy/AdvReac Type Severity Reaction Status Date / Time No Known Allergies Allergy Verified 04/25/22 09:11 Social History Smoking Status: Never smoker ROS ROS ED ROS Narrative Constitutional: No fever, no chills. HEENT: No sore throat. No neck pain. No loss of vision. No rhinorrhea. Cardiovascular: Midsternal chest pressure/chest pain. No palpitations. No ped al edema. Respiratory: No cough, nausea feeling that cannot catch breath/shortness of breath. Abdominal: No abdominal pain. No nausea. No vomiting. Genitourinary: No dysuria. No hematuria. Musculoskeletal: No myalgias. No arthralgias. Neurologic: No headaches. No dizziness. No lightheadedness. Skin: No rash. No change in color. Psychiatric: No depression. Positive history of anxiety. EXAM Physical Exam Narrative Exam Narrative: Afebrile. Vital signs noted. HEENT: Normocephalic. Atraumatic. PERRL, EOMI. Neck soft and supple. No point tenderness or step off. Cardiovascular: Regular rate and rhythm. No murmurs, rubs, or gallops appreciated. Respiratory: No tachypnea. Lungs clear to auscultation bilaterally. Gastrointestinal: Abdomen soft, nontender, with normoactive bowel sounds. No rebound or guarding. Neurological: Awake. Alert. Nonfocal, nonlateralizing. Skin: No rash. Normal color. No pallor. Musculoskeletal: No pedal edema. Full range of motion extremities. Const Vital Signs: 04/25/22 09:11 04/25/22 09:22 04/25/22 09:45 Temperature 97.8 F Temperature Source Temporal Pulse Rate 89 Respiratory Rate 16 Respiratory Effort Normal Non-Labored Respiratory Depth Normal Respiratory Pattern Normal Blood Pressure 162/88 H Blood Pressure Mean 112 Pulse Ox 100 97 Oxygen Delivery Method Room Air Room Air Room Air 04/25/22 10:43 Temperature 96.5 F L Temperature Source Temporal Pulse Rate 65 Respiratory Rate 18 Respiratory Effort Respiratory Depth Respiratory Pattern Blood Pressure 134/78 H Blood Pressure Mean 96 Pulse Ox 97 Oxygen Delivery Method Room Air MDM MDM MDM Narrative Medical decision making narrative: Chest pain work-up was pursued. Initially, her blood pressure was 162/88 but I do think that this is situational. It is come down to 148 systolic already. Her pulse ox is 100% on room air. In the differential diagnosis is coronary artery disease/ACS versus pulmonary embolism. I will obtain a CBC, BMP, 2-hour troponin, and D-dimer along with 1 view chest x-ray. Patient was administered aspirin. I do feel that also in the differential diagnosis, there may be an anxiety component. EKG interpreted by myself demonstrates normal sinus rhythm at 65 bpm without ectopy or acute ST changes. No STEMI. I obtained and reviewed her CBC shows normal hemoglobin of 13.7, white count normal at 7.0, normal count of 304. I r eviewed her D-dimer which is negative at 0.38 which I feel helps rule out pulmonary embolism. I reviewed her basic metabolic panel which is grossly unremarkable. I also reviewed her high-sensitivity troponin which is 3. Second high-sensitivity troponin/delta at 2 hours will be obtained. I interpreted her chest x-ray and see no evidence of pneumonia or pneumothorax. I reviewed the radiologist read and agree with it. Is all she has a normal delta troponin, I do feel that she would be able to be discharged safely home as pulmonary embolism and coronary artery disease work-up were negative. Her delta troponin is 0 as her repeat is 3. I feel she be discharged with follow-up to her primary care provider. Return instructions to the emergency department were reviewed. Disposition is discharged home in stable condition. Lab Data Attestation: I reviewed the patient's lab results. Labs: Laboratory Results - last 24 hr 04/25/22 04/25/22 04/25/22 09:30 09:30 09:30 WBC 7.0 RBC 4.88 Hgb 13.7 Hct 42.1 MCV 86.3 MCH 28.1 MCHC 32.5 RDW Std Deviation 41.5 RDW Coeff of Neo 13.2 Plt Count 304 MPV 10.4 Immature Gran % (Auto) 0.300 Neut % (Auto) 65.8 Lymph % (Auto) 22.9 [place] % (Auto) 9.3 Eos % (Auto) 1.1 Baso % (Auto) 0.6 Absolute Neuts (auto) 4.6 Absolute Lymphs (auto) 1.60 Nucleated RBC % 0 D-Dimer Quant (PE/DVT) 0.38 Sodium 140 Potassium 4.0 Chloride 104 Carbon Dioxide 29.0 Anion Gap 7 BUN 16 Creatinine 0.80 Estim Creat Clear Calc 73.46 Est GFR (MDRD) Af Amer 98 Est GFR (MDRD) Non-Af 81 BUN/Creatinine Ratio 20.0 Glucose 94 Calcium 9.6 Troponin I High Sens 3 04/25/22 11:30 WBC RBC Hgb Hct MCV MCH MCHC RDW Std Deviation RDW Coeff of Neo Plt Count MPV Immature Gran % (Auto) Neut % (Auto) Lymph % (Auto) [place] % (Auto) Eos % (Auto) Baso % (Auto) Absolute Neuts (auto) Absolute Lymphs (auto) Nucleated RBC % D-Dimer Quant (PE/DVT) Sodium Potassium Chloride Carbon Dioxide Anion Gap BUN Creatinine Estim Creat Clear Calc Est GFR (MDRD) Af Amer Est GFR (MDRD) Non-Af BUN/Creatinine Ratio Glucose Calcium Troponin I High Sens 3 Radiography Chest X-Ray - ED: 1 View and Read by ED Physician Diagnostic Testing: Clinical Impression(s) from Imaging Studies Chest X-Ray 04/25/22 09:40 IMPRESSION: No acute abnormality is seen. Electronically Signed: Jameel Chau MD at 10:24 EST , Discharge Plan Triage Chief Complaint: Shortness of Breath ED Provider: Teddy Andrade Dx/Rx/DC Orders Clinical Impression: Chest pain, Shortness of breath Instructions: ED Chest Pain, Uncertain Cause, ED Dyspnea Prescriptions: No Action bupropion HCl 150 MG Tablet.Sa 150 mg PO DAILY esomeprazole magnesium [Nexium] 20 MG capsule 20 mg PO DAILY Cholecalciferol (Vitamin D3) [Vitamin D3] 5,000 UNIT capsule 4,000 unit PO DAILY oxycodone-acetaminophen 1 TABLET tablet 1 - 2 tab PO Q4H PRN PRN (Reason: Pain) Qty: 30 0RF Stand Alone Forms: ED Work / School Excuse Primary Care Provider: Jaspal Sam Referrals: Jaspal Sam MD [Primary Care Provider] - 3-5 Days if not improving Disposition Disposition: Home, Self Care
--- NOTE | 2022-04-25 09:40 | RAD_ITS ---
STUDY: X-RAY CHEST REASON FOR EXAM: Female, 51 years old. Chest pain and shortness of breath. TECHNIQUE: Single AP portable view of the chest. COMPARISON: Comparison is made with prior study 06/25/2021. FINDINGS: EKG electrodes are seen. The lungs are clear and expanded. Scattered calcified granuloma. There is no demonstrated pleural abnormality. Normal size heart. Normal mediastinum and bisi. Normal visualized pulmonary arteries. Normal visualized aortic arch and descending thoracic aorta. Normal visualized thoracic spine. Normal visualized ribs, clavicles, and shoulders. Hiatal hernia. RAD/Chest 1 View (Portable) IMPRESSION: No acute abnormality is seen. Electronically Signed: Jameel Chau MD at 10:24 EST ,
[2022-04-25] MEDS: Aspirin 81 MG TAB.CHEW 324 MG PO (09:41)
[2022-04-25 09:44] LABS: Absolute Neutrophil Count 4.6 X10^3/uL (2.0-7.7); Basophil# 0.04 X10^3/uL; Basophil% 0.6 % (0-1); Eosinophil# 0.08 X10^3/uL; Eosinophils% 1.1 % (0-5); Hematocrit 42.1 % (37-47); Hemoglobin 13.7 g/dL (12.0-15.0); Lymphocyte % 22.9 % (19-41); Mean Corp Hgb Conc 32.5 g/dL (32-36); Mean Corpuscular Hgb 28.1 pg (27.0-32.0); Mean Corpuscular Volume 86.3 fL (81-99); Mean Platelet Vol. 10.4 fl (6.2-12.0); Monocyte# 0.65 X10^3/uL; Monocyte% 9.3 % (0-10); NRBC Flagged by Analyzer 0 % (0-5); Neutrophil % 65.8 % (47-70); Platelet Count 304 K/mm3 (150-450); RBC Distribution Width CV 13.2 % (11.6-14.6); RBC Distribution Width SD 41.5 fl (35.1-43.9); Red Blood Count 4.88 M/mm3 (4.2-5.4)
[2022-04-25 09:45] VITALS: O2SAT 97
[2022-04-25 09:53] LABS: D-Dimer Quantitative (DVT/PE) 0.38 FEU/ug/m (0.27-0.49)
[2022-04-25 09:58] LABS: Anion Gap 7 (5-15); BUN 16 mg/dL (7-18); Calcium,Total 9.6 mg/dL (8.5-10.1); Chloride 104 mmol/L (98-107); EST Glomerular Filtration Rate 81 mL/min (>60); Est Glom Filt Rate - Afr Amer 98 mL/min (>60); Estimated Creatinine Clearance 73.46 ml/min; Glucose 94 mg/dL (74-106); Sodium Level 140 mmol/L (136-145); Troponin-I HS (w/2H Reflex) 3 pg/mL (3.0-54.0)
[2022-04-25 10:43] VITALS: BP 134/78; PULSE 65; RESP 18; TEMP 35.8; O2SAT 97
[2022-04-25 11:37] LABS: Reflex Troponin-HS? (from REC) Y
[2022-04-25 12:11] LABS: Troponin-I HS 3 pg/mL (3.0-54.0)
[2022-04-25 12:48] VITALS: BP 102/79
== END 2022-04-25 12:49 | disposition home or self-care (01) ==
PROVIDERS: Emergency Provider Emergency Medicine; PCP Family Medicine; Visit Provider Emergency Medicine
DX: R06.02 Shortness of breath (principal); R07.9 Chest pain, unspecified
CPT/HCPCS: 71045; 80048; 84484; 85025; 85379; 93005; 99285; J7040; A4216

== ENCOUNTER → 2022-04-30 | Outpatient (CLI) | payer OTHER, SELFPAY ==
[2022-04-30 11:15] LABS: ALB/GLOB Ratio 1.2 RATIO (0.9-2.4); AST(SGOT) 15 U/L (15-37); Alanine Aminotransfer ALT/SGPT 35 U/L (13-56); Alkaline Phosphatase 100 U/L (45-117); Anion Gap 8 (5-15); BUN 18 mg/dL (7-18); BUN/Creat Ratio 24.2 RATIO (10-20); Calcium,Total 9.6 mg/dL (8.5-10.1); Chloride 103 mmol/L (98-107); Creatinine, Serum 0.74 mg/dL (0.55-1.02); EST Glomerular Filtration Rate 88 mL/min (>60); Est Glom Filt Rate - Afr Amer 107 mL/min (>60); Globulin 3.2 g/dL (2.2-4.2); Glucose 81 mg/dL (74-106); Potassium 4.4 mmol/L (3.5-5.1); Protein, Total 7.2 g/dL (6.4-8.2); Sodium Level 139 mmol/L (136-145); T4 Free Direct 0.96 ng/dL (0.76-1.46); Thyroid Stim Hormone (TSH) 1.19 uIU/mL (0.358-3.74)
== END | disposition home or self-care (01) ==
LOC: MFPLAB 08:28
PROVIDERS: PCP Family Medicine; Referring Provider Family Medicine; Visit Provider Nurse Practitioner Family
DX: R25.1 Tremor, unspecified (principal)
CPT/HCPCS: 36415; 80053; 84439; 84443

== ENCOUNTER 2022-05-26 16:20 | Outpatient (RCR) | payer OTHER, SELFPAY | END 2022-06-17 23:59 | LOC: NS 16:20 | PROVIDERS: PCP Family Medicine; Referring Provider Family Medicine; Visit Provider Family Medicine | DX: Z71.3 Dietary counseling and surveillance (principal); E66.9 Obesity, unspecified; Z68.31 Body mass index [BMI] 31.0-31.9, adult | CPT/HCPCS: 97803 ==

== ENCOUNTER → 2022-08-11 | Outpatient (CLI) | payer OTHER, SELFPAY ==
[2022-08-11 13:02] LABS: ALB/GLOB Ratio 0.9 RATIO (0.9-2.4); AST(SGOT) 24 U/L (15-37); Alanine Aminotransfer ALT/SGPT 40 U/L (13-56); Albumin, Serum 3.6 g/dL (3.2-5.0); Alkaline Phosphatase 118 U/L (45-117); Anion Gap 3 (5-15); BUN 14 mg/dL (7-18); BUN/Creat Ratio 19.7 RATIO (10-20); Calcium,Total 9.6 mg/dL (8.5-10.1); Chloride 107 mmol/L (98-107); Cholesterol 233 mg/dL (200); Creatinine, Serum 0.71 mg/dL (0.55-1.02); EST Glomerular Filtration Rate 93 mL/min (>60); Est Glom Filt Rate - Afr Amer 112 mL/min (>60); Globulin 3.9 g/dL (2.2-4.2); Glucose 81 mg/dL (74-106); High Density Lipoprotein 92 mg/dL; Potassium 3.9 mmol/L (3.5-5.1); Protein, Total 7.5 g/dL (6.4-8.2); Sodium Level 137 mmol/L (136-145); Triglycerides 95 mg/dL; Very Low Density Lipoprotein 19 mg/dL (5-40)
== END | disposition home or self-care (01) ==
LOC: MFPLAB 10:28
PROVIDERS: PCP Family Medicine; Visit Provider Family Medicine
DX: E78.5 Hyperlipidemia, unspecified (principal)
CPT/HCPCS: 36415; 80053; 80061

== ENCOUNTER → 2023-01-30 | Outpatient (CLI) | payer OTHER, SELFPAY ==
[2023-01-30 15:41] LABS: Vitamin D,25 Hydroxy 54.6 ng/mL
[2023-01-30 15:47] LABS: ALB/GLOB Ratio 0.8 RATIO (0.9-2.4); AST(SGOT) 37 U/L (15-37); Alanine Aminotransfer ALT/SGPT 51 U/L (13-56); Albumin, Serum 3.4 g/dL (3.2-5.0); Alkaline Phosphatase 126 U/L (45-117); Anion Gap 3 (5-15); BUN 14 mg/dL (7-18); BUN/Creat Ratio 17.4 RATIO (10-20); Calcium,Total 9.3 mg/dL (8.5-10.1); Chloride 106 mmol/L (98-107); Cholesterol 274 mg/dL (200); EST Glomerular Filtration Rate 80 mL/min (>60); Est Glom Filt Rate - Afr Amer 97 mL/min (>60); Globulin 4.1 g/dL (2.2-4.2); Glucose 86 mg/dL (74-106); High Density Lipoprotein 104 mg/dL; Potassium 4.1 mmol/L (3.5-5.1); Protein, Total 7.5 g/dL (6.4-8.2); Sodium Level 137 mmol/L (136-145); Thyroid Stim Hormone (TSH) 0.78 uIU/mL (0.358-3.74); Triglycerides 58 mg/dL; Very Low Density Lipoprotein 12 mg/dL (5-40)
== END | disposition home or self-care (01) ==
LOC: MFPLAB 11:32
PROVIDERS: PCP Family Medicine; Visit Provider Family Medicine
DX: E78.5 Hyperlipidemia, unspecified (principal); E55.9 Vitamin D deficiency, unspecified; F41.9 Anxiety disorder, unspecified
CPT/HCPCS: 36415; 80053; 80061; 82306; 84443

== ENCOUNTER → 2023-03-26 | Outpatient (CLI) | payer OTHER, SELFPAY ==
--- NOTE | 2023-03-26 07:59 | BI_ITS ---
MAMMOGRAPHY - BILATERAL SCREENING REASON FOR EXAM: Female, 52 years old. Routine annual screening examination. PERTINENT HISTORY: Non-contributory. TECHNIQUE: Digital bilateral breast dipak (3D mammographic acquisition) in the CC and MLO projections. 2-D mediolateral oblique (MLO) and craniocaudad (CC) views of both breasts were obtained. CAD: Full Field Digital Mammography with Computer Added Detection was performed. COMPARISON: Comparison is made with prior study dated April 16, 2021 and December 09, 2019. FINDINGS: Breast Composition: There are scattered areas of fibroglandular density. There are no dominant masses or suspicious calcifications. No other significant abnormalities are identified. There has been no significant change since the prior study. BI/SCRN MAMM (CAD)W/DIPAK BILAT IMPRESSION: Stable bilateral screening mammogram. Yearly follow-up mammogram recommended. (A) ASSESSMENT CATEGORY: BIRADS Category 1: Negative. A letter regarding these results will be sent to the patient by the facility within 30 days. Approximately 10% of breast cancers are not detected by mammography. A normal mammogram should not delay biopsy of a clinically suspicious abnormality. [id number] Electronically Signed: Jameel Chau MD at 9:54 EST ,
== END | disposition home or self-care (01) ==
LOC: OPBI 07:58
PROVIDERS: PCP Family Medicine; Referring Provider Family Medicine; Visit Provider Family Medicine
DX: Z12.31 Encounter for screening mammogram for malignant neoplasm of breast (principal)
CPT/HCPCS: 77063; 77067

== ENCOUNTER → 2023-06-08 | Outpatient (CLI) | payer OTHER, SELFPAY ==
--- OUTSIDE RECORDS SUMMARY | 2023-06-08 17:20 | XMS RPT_ITS | CCD ---
Author Name Unknown Address [address] [place], [place] [id number] Organization [facility] Results Test Name Value Interpretation Reference Range Facil ity Progress note 04-09-2021 Note Date & Type Note Facility 04-09-2021 Note HNO ID: [id number] Author: Jacob Benton MD Service: ? Author Type: Physician Type: Progress Notes Filed: 04/09/2021 12:52 PM Note Text: Subjective: Patient status post an upper and lower endoscopy completed at [facility] on 03/13/2021. This was done for heartburn and a known history of diverticulitis. Patient had an area in her colon which I biopsied which actually just came back as reactive changes. I think that was secondary to the diverticulitis that she had. Her upper endoscopy was normal. No H. pylori was identified. Objective:Last menstrual period 03/02/2021. Abdomen is soft and nontender Assessment:Heartburn (primary encounter diagnosis) Diverticulitis Plan: Patient will need to have a repeat colonoscopy in 10 years. Her upper endoscopy can be completed on an as-needed basis. [facility] Progress note 02-12-2021 Note Date & Type Note Facility 02-12-2021 Note HNO ID: [id number] Author: Jacob Benton MD Service: ? Author Type: Physician Type: Progress Notes Filed: 02/12/2021 7:52 AM Note Text: HISTORY AND PHYSICAL Brandy Sims 1970 REFERRING PHYSICIAN: Deyvi Sam, * CHIEF COMPLAINT: Consult (colonscopy consult) HPI: The patient is a 50 year old female referred for endoscopy. Brandy Myrick notes the following GI complaints: Brandy Myrick notes abdominal pain. Earlier this year the patient had an episode of diverticulitis which was treated with antibiotics. She took several rounds for this to improve.. . Brandy Myrick notes occasional diarrhea. Brandy Myrick notes occasional constipation. Brandy Myrick denies a change in bowel habits. Brandy Myrick denies melena. Brandy Myrick denies bright red blood per rectum. Brnady Myrick denies hemorrhoids. The patient notes the following upper complaints: Brandy Myirck notes heartburn. Brandy Myrick denies dysphagia. Brandy Myrick denies a history of ulcers/ peptic ulcer disease. Brandy Myrick has not undergone prior endoscopy. The patient is being seen by me today at the request of Dr. Deyvi Sam MD for my opinion and advice regarding No diagnosis found.. PAST MEDICAL HISTORY Diagnosis Date - Anxiety state - Cholelithiasis - Constipation - Depression - Diverticulitis - GERD (gastroesophageal reflux disease) - Headache PAST SURGICAL HISTORY Procedure Laterality Date - SECTION HX 98 - LAPAROSCOPIC CHOLEYCYSTECTOMY 03/20/15 Current Outpatient Medications Medication Sig - MULTIVITAMIN ORAL Take by mouth once daily. - sertraline (ZOLOFT) 25 mg tablet Take 25 mg by mouth once daily. - buPROPion XL (WELLBUTRIN XL) 150 mg 24 hr tablet Take 150 mg by mouth once daily. - Cholecalciferol, Vitamin D3, (VITAMIN D-3) 2,000 unit cap Take 4,000 Int'l Units by mouth. - oxyCODONE-acetaminophen (PERCOCET) 5-325 mg tablet Take 1 tablet by mouth every 4 hours as needed. (Patient not taking: Reported on 02/11/2021) No current facility-administered medications for this visit. ALLERGIES: Adhesive PERSONAL HISTORY: Social History Tobacco Use - Smoking status: Never Smoker - Smokeless tobacco: Never Used Vaping Use - Vaping Use: Never used Substance Use Topics - Alcohol use: Not Currently - Drug use: Never FAMILY HISTORY: FAMILY HISTORY Problem Relation Age of Onset - Diabetes Mother - Stroke Father - Diabetes Maternal Grandmother - Breast Cancer Maternal Grandmother - Heart Maternal Grandmother - Alcohol/Drug Maternal Grandfather REVIEW OF SYMPTOMS: The review of systems data was entered by the nurse and reviewed by me Nursing Notes: Briana Trejo RN 02/11/2021 4:28 PM Signed REVIEW OF SYSTEMS: General: The patient denies fatigue, denies weight loss, NOTES weight gain, NOTES feeling hot, and denies feelings of cold. Eyes: The patient denies glaucoma, denies eye injury/surgery, does not wear glasses or contacts. Ear/Nose/Throat: The patient NOTES allergies, denies hayfever, denies ear infections, and denies bloody noses. Cardiovascular: The patient denies chest pain, denies heart disease, denies high blood pressure,denies cardiac stent, denies prior heart attack, denies irregular heart beat, denies high cholesterol, denies poor circulation, denies heart failure, other cardiac issues, denies claudication, denies cold feet, denies peripheral arterial stent. Respiratory: The patient denies tuberculosis, denies pneumonia, denies frequent cough, denies pulmonary embolism, denies shortness of breath, and denies coughing up blood. Gastrointestinal: The patient denies difficulty swallowing, NOTES acid reflux, denies ulcers, denies vomiting, denies jaundice/hepatitis, NOTES gallbladder problems, denies black or tarry stools, denies hemorrhoids, denies bleeding from rectum, NOTES diverticulitis, NOTES constipation, denies diarrhea, denies loss of stool control, and denies hernias. Kidney/Bladder: The patient denies kidney stones, denies urine infections, and denies bloody urine. Skin: The patient denies a history of skin cancer, denies bleeding/changing moles, and denies a history of skin rash. Neurologic: The patient denies a history of epilepsy/convulsions, NOTES headaches, denies head/spinal injuries, and denies stroke/TIA. Psychiatric: The patient denies psychiatric medications, NOTES depression, and denies voices, denies substance abuse. Endocrine: The patient denies thyroid disorders, denies diabetes, and denies hormonal problems. Hematologic: The patient denies a history of bruising, denies bleeding, and denies anemia, denies blood clots. Infections: The patient denies a history of measles and mumps, denies rheumatic fever, and denies sexually transmitted diseases. Musculoskeletal: The patient denies back pain/injury, denies back problems, denies sciatica, denies knee/foot trouble, denies arthritis, or denies gout. When was patient's last Mammogram screening? (more content not included)... [facility] Summary Purpose Family History No Family History Records FoundNo Family History Records Found Advance Directives No Advanced Directives Records FoundNo Advanced Directives Records Found Additional Source Comments INFORMATION SOURCE (unrecogn ized section and content) DATE CREATED AUTHOR AUTHOR'S ELKIN CANCINO 05/11/2021 [facility] FOR RECORDS PERTAINING TO PATIENTS WHO ARE OR HAVE BEEN ENROLLED IN A CHEMICAL DEPENDENCY/SUBSTANCEABUSE PROGRAM, SOME INFORMATION MAY BE OMITTED. This clinical summary was aggregated from multiple sources. Caution should be exercised in using it in the provision of clinical care. This summary normalizes information from multiple sources, and as a consequence, information in this document may materially change the coding, format and clinical context of patient data. In addition, data may be omitted in some cases. CLINICAL DECISIONS SHOULD BE BASED ON THE PRIMARY CLINICAL RECORDS. [facility] [employer] [facility]. provides no warranty or guarantee of the accuracy or completeness of information in this document.
[2023-06-08 18:19] LABS: Vitamin B12 707 pg/mL (211-911); Vitamin D,25 Hydroxy 52.8 ng/mL
[2023-06-08 18:38] LABS: ALB/GLOB Ratio 0.9 RATIO (0.9-2.4); AST(SGOT) 23 U/L (15-37); Alanine Aminotransfer ALT/SGPT 55 U/L (13-56); Albumin, Serum 3.7 g/dL (3.2-5.0); Alkaline Phosphatase 109 U/L (45-117); Anion Gap 5 (5-15); BUN 14 mg/dL (7-18); BUN/Creat Ratio 12.8 RATIO (10-20); Chloride 108 mmol/L (98-107); Creatinine, Serum 1.09 mg/dL (0.55-1.02); EST Glomerular Filtration Rate 56 mL/min (>60); Est Glom Filt Rate - Afr Amer 68 mL/min (>60); Ferritin 17 ng/mL (8-252); Glucose 80 mg/dL (74-106); Iron 48 ug/dL (50-170); Potassium 3.9 mmol/L (3.5-5.1); Protein, Total 7.7 g/dL (6.4-8.2); Sodium Level 139 mmol/L (136-145); Thyroid Stim Hormone (TSH) 1.03 uIU/mL (0.358-3.74)
== END | disposition home or self-care (01) ==
PROVIDERS: PCP Family Medicine; Referring Provider Family Medicine; Visit Provider Family Medicine
DX: G25.81 Restless legs syndrome (principal)
CPT/HCPCS: 36415; 80053; 82306; 82607; 82728; 83540; 83735; 84443

== ENCOUNTER → 2023-09-07 | Outpatient (CLI) | payer OTHER, SELFPAY ==
--- NOTE | 2023-09-07 14:22 | RAD_ITS ---
STUDY: X-RAY - LUMBOSACRAL SPINE REASON FOR EXAM: Female, 52 years old. Lumbago with right sciatica. TECHNIQUE: 6 view(s) of the lumbosacral spine, including lateral flexion and extension views, were obtained. COMPARISON: Abdominal x-ray dated March 28, 2020 FINDINGS: Normal lumbar lordosis. Moderate thoracolumbar scoliosis. Normal alignment of the vertebral bodies. Normal vertebral bodies and endplates. Normal disc space heights. Limited flexion and extension with no abnormal motion. Normal visualized soft tissue structures. RAD/L/S Spine w Bend Min 6 Vw IMPRESSION: Moderate thoracolumbar scoliosis with limited flexion and extension. No acute abnormality or erosive changes. Electronically Signed: Dustin Simon MD at 15:34 EDT ,
== END | disposition home or self-care (01) ==
PROVIDERS: PCP Family Medicine; Referring Provider Family Medicine; Visit Provider Family Medicine
DX: M54.41 Lumbago with sciatica, right side (principal)
CPT/HCPCS: 72114

== ENCOUNTER → 2024-04-07 | Outpatient (CLI) | payer OTHER, SELFPAY ==
--- NOTE | 2024-04-07 10:11 | BI_ITS ---
MAMMOGRAPHY - BILATERAL SCREENING REASON FOR EXAM: Female, 53 years old. Routine annual screening examination. PERTINENT HISTORY: Grandmother with breast cancer. TECHNIQUE: Digital bilateral breast dipak (3D mammographic acquisition) in the CC and MLO projections. 2-D mediolateral oblique (MLO) and craniocaudad (CC) views of both breasts were obtained. CAD: Full Field Digital Mammography with Computer Added Detection was performed. COMPARISON: Comparison is made with prior study dated March 26, 2023 and April 16, 2021. FINDINGS: Breast Composition: There are scattered areas of fibroglandular density. There are no dominant masses or suspicious calcifications. No other significant abnormalities are identified. There has been no significant change since the prior study. BI/SCRN MAMM (CAD)W/DIPAK BILAT IMPRESSION: Stable bilateral screening mammogram. Yearly follow-up mammogram recommended. (A) ASSESSMENT CATEGORY: BIRADS Category 1: Negative. A letter regarding these results will be sent to the patient by the facility within 30 days. Approximately 10% of breast cancers are not detected by mammography. A normal mammogram should not delay biopsy of a clinically suspicious abnormality. [id number] Electronically Signed: Jameel Chau MD at 11:17 EST ,
== END | disposition home or self-care (01) ==
PROVIDERS: PCP Family Medicine; Referring Provider Family Medicine; Visit Provider Family Medicine
DX: Z12.31 Encounter for screening mammogram for malignant neoplasm of breast (principal)
CPT/HCPCS: 77063; 77067

== ENCOUNTER → 2024-08-23 | Outpatient (CLI) | payer OTHER, SELFPAY ==
[2024-08-23 15:32] LABS: Absolute Lymphocyte Count 1.93 X10^3/uL (0.83-4.51); Absolute Neutrophil Count 5.2 X10^3/uL (2.0-7.7); Basophil# 0.06 X10^3/uL; Basophil% 0.8 % (0-1); Eosinophil# 0.07 X10^3/uL; Eosinophils% 0.9 % (0-5); Hematocrit 41.9 % (37-47); Hemoglobin 13.6 g/dL (12.0-15.0); Lymphocyte # 1.93 X10^3/ul (0.83-4.51); Lymphocyte % 24.4 % (19-41); Mean Corp Hgb Conc 32.5 g/dL (32-36); Mean Corpuscular Volume 83.1 fL (81-99); Mean Platelet Vol. 11.5 fl (6.2-12.0); Monocyte# 0.64 X10^3/uL; Monocyte% 8.1 % (0-10); NRBC Flagged by Analyzer 0 % (0-5); Neutrophil # 5.19 X10^3/uL (2.7-7.7); Neutrophil % 65.4 % (47-70); Platelet Count 342 K/mm3 (150-450); RBC Distribution Width SD 39.2 fl (35.1-43.9); Red Blood Count 5.04 M/mm3 (4.2-5.4); White Blood Count 7.9 K/mm3 (4.4-11.0)
[2024-08-23 16:03] LABS: Anion Gap 13 (5-15); BUN 21 mg/dL (4-19); BUN/Creat Ratio 25.7 RATIO (10-20); Calcium,Total 9.9 mg/dL (7.6-11.0); Carbon Dioxide 24.8 mmol/L (21.0-32.0); Chloride 102 mmol/L (98-108); Creatinine, Serum 0.83 mg/dL (0.70-1.20); EST Glomerular Filtration Rate 86 (>60); Glucose 86 mg/dL (70-99); Potassium 3.9 mmol/L (3.3-5.1); Sodium Level 139 mmol/L (133-145)
[2024-08-23 16:14] LABS: CRP < 3.00 mg/L (0.0-3.0)
[2024-08-23 16:49] LABS: Erythrocyte Sedimentation Rate 28 mm/hr (0-30)
== END | disposition home or self-care (01) ==
LOC: MTLAB 12:37
PROVIDERS: PCP Family Medicine; Referring Provider Family Medicine; Visit Provider Family Medicine
DX: M79.606 Pain in leg, unspecified (principal)
CPT/HCPCS: 36415; 80048; 84443; 85025; 85652; 86140

== ENCOUNTER → 2024-09-02 | Outpatient (CLI) | payer OTHER, SELFPAY ==
--- NOTE | 2024-09-02 16:08 | MRI_ITS ---
PROCEDURE: SPINE LUMBAR (ROUTINE) 09/02/2024 REASON FOR EXAM: LUBAGO WITH SCIATICA TECHNIQUE: Multiplanar and multisequence images were obtained without IV contrast administration. FINDINGS: Appearance of a possible moderate hiatal hernia coronal localizer image 6. Mild leftward curvature of the lumbar spine. Appearance of disc desiccation within the lumbar spine appearing less at L3-4 and normal-appearing disc signal L5-S1. No fracture or malalignment. Marrow signal appears within limits. Conus Medullaris: Appears to terminate at T12-L1 and appears within limits. The cauda equina appears within limits. L1-2: No central or foraminal narrowing. L2-3: No central or foraminal narrowing. L3-4: No central or foraminal narrowing. L4-5: No central or foraminal narrowing. L5-S1: No central or foraminal narrowing. Limited images of the retroperitoneum appear within limits. MRI/Spine Lumbar (Routine) IMPRESSION: No significant central or foraminal narrowing identified. Leftward curvature of the lumbar spine. Suggestion of a possible moderate hiatal hernia. Reading Location: [id number]
== END | disposition home or self-care (01) ==
LOC: MRI 15:55
PROVIDERS: PCP Family Medicine; Referring Provider Family Medicine; Visit Provider Family Medicine
DX: M54.40 Lumbago with sciatica, unspecified side (principal)
CPT/HCPCS: 72148

== ENCOUNTER 2024-11-23 13:00 | Outpatient (RCR) | payer OTHER, SELFPAY ==
--- NOTE | 2024-09-14 18:01 | HP.PTEVAL_ITS ---
Patient's Visit Information Visit Information Visit Information: BENNETT SIMS is a 53 year old F referred to Physical Therapy by Dr. Deyvi Sam MD with a diagnosis of B IT band and greater trochanter. Date of Evaluation: 09/14/24 Physical Therapist: JESSE Smalls Visit Plan Frequency: 2x /Week Duration: 2 Months Plan: 2X/ week for 8 weeks for foam rolling to TFL, hip flexor, Quad and strengthening of core/abdominals and hip extensor strength while maintaining a good pelvic tilt HEP: bridges, will manually roll out TFL, hip flexor, quad, stretch with strap in prone hip flexors, and pelvic tilts Subjective Subjective: Pt has a lot of pain in her legs. Her pain on B Lateral hips and down the front of the legs and down the black. It is a constant throbbing pain. Started in the R and then moved to the L. She got a shot in B legs last week. She was on prednisone also. It took 5 days to kick in and then it helped. She is on her feet 14 hours a day. Her back now hurts but she has been using it more because her legs hurt so bad. He checked her other blood work and everything came back fine. Her MRI of her back is good. She has trouble sleeping at night. She has an adjustable bed. She has trouble after sitting and goes to get up. Pain R hip pain: Pain Intensity (Out of 10): 4 L hip pain: Pain Intensity (Out of 10): 4 Objective Objective: Gait: Walks with decrease hip extension, decreased step length and stride length LE MMT: B hip flex 4-/5, B knee ext 4/5, B knee flex 4-/5, bridge 3/4 normal ROM bridge, Prone hip ext 2-/5 B. Pt struggles to get into a pelvic tilt position and she stands and sits in an anterior pelvic tilt. Pt has very tight hip flexor/Quad and some slight HS tightness as well. Pt is tender to palpation B TFL, Quad and hip flexor muscle belly. Was very sore with manual foam rolling of those with many tender points. Balance/Special Test Scores Lower Extremity Functional Score: 38 Goals Goal 1:: I HEP Goal Time Frame: 6-8 Weeks Goal 2:: Have 50% less pain in B hip flexors with sitting and transitioning from sit to stand Goal Time Frame: 6-8 Weeks Goal 3:: Increase hip extension strength (2-/5 B at eval) Goal Time Frame: 6-8 Weeks Goal 4:: Increase hip flexor/Quad flexibility Goal Time Frame: 6-8 Weeks Goal 5:: Be able to complete core exercises and be able to hold a good pelvic tilt Goal Time Frame: 6-8 Weeks Rehabilitation Potential Rehabilitation Potential: Good Anticipated Interventions Patient/Client Instruction: Educate patient on: Condition and Plan of Care For the Purpose of:: To decrease pain, To increase ROM, To improve nutrient delivery to tissue, To improve muscle performance and motor function, To improve ability to perform ADL's, To increase tolerance to activity/condition/position, To improve performance and independence with ADL's, To decrease level of supervision to perform tasks, To improve ability of physical actions for ho me/community/work/leisure, To improve gait and locomotor functions, To improve health of tissue, To decrease soft tissue restriction and To increase flexibility/ROM Therapeutic Exercise to Include: Strength training, Body mechanics, Postural training, Flexibilty training, Gait and locomotor training, Neuromotor development, Passive ROM, Active ROM and Dynamic Lumbar Stabilization For the Purpose of:: To decrease pain, To increase ROM, To improve nutrient delivery to tissue, To improve muscle performance and motor function, To improve ability to perform ADL's, To increase tolerance to activity/condition/position, To improve performance and independence with ADL's, To decrease level of supervision to perform tasks, To improve ability of physical actions for home/community/work/leisure, To improve gait and locomotor functions, To improve health of tissue, To decrease soft tissue restriction and To increase flexibility/ROM Functional Training to Include: Gait training For the Purpose of:: To improve gait and locomotor functions Manual Therapy Techniques to Include: Mobilization, Passive ROM and Soft tissue mobilization For the Purpose of:: To decrease pain, To increase ROM, To improve nutrient delivery to tissue, To improve muscle performance and motor function, To improve ability to perform ADL's, To increase tolerance to activity/condition/position, To improve performance and independence with ADL's, To improve health of tissue, To decrease soft tissue restriction and To increase flexibility/ROM Thermo therapy (hot pack): Yes Ultrasound (thermal/non thermal): Yes For the Purpose of:: To decrease pain, To decrease swelling/inflammation, To increase ROM and To improve nutrient delivery to tissue Text: Thank you for the opportunity to evaluate your patient. For Medicare and Medicare HMO plans, please review the plan of care and approve it. It will need to be FAXED BACK to us at [phone] for Medicare purposes. For Medicare only, by signing this I certify the plan of care. Please let me know if there are questions or concerns regarding this plan of care. Physician Signature: Date:
--- NOTE | 2024-12-07 17:19 | HP.PT.NRP ---
Patient Information Patient Information: BENNETT SIMS was seen in my office for initial evaluation on 09/14/24. The following Plan of Care was established for this patient: POC Established Initial Frequency: 2x /Week Initial Duration: 2 Months Anticipated Interventions Patient/Client Instruction: Educate patient on: Condition and Plan of Care For the Purpose of:: To decrease pain, To increase ROM, To improve nutrient delivery to tissue, To improve muscle performance and motor function, To improve ability to perform ADL's, To increase tolerance to activity/condition/position, To improve performance and independence with ADL's, To decrease level of supervision to perform tasks, To improve ability of physical actions for home/community/work/leisure, To improve gait and locomotor functions, To improve health of tissue, To decrease soft tissue restriction and To increase flexibility/ROM Therapeutic Exercise to Include: Strength training, Body mechanics, Postural training, Flexibilty training, Gait and locomotor training, Neuromotor development, Passive ROM, Active ROM and Dynamic Lumbar Stabilization For the Purpose of:: To decrease pain, To increase ROM, To improve nutrient delivery to tissue, To improve muscle performance and motor function, To improve ability to perform ADL's, To increase tolerance to activity/condition/position, To improve performance and independence with ADL's, To decrease level of supervision to perform tasks, To improve ability of physical actions for home/community/work/leisure, To improve gait and locomotor functions, To improve health of tissue, To decrease soft tissue restriction and To increase flexibility/ROM Functional Training to Include: Gait training For the Purpose of:: To improve gait and locomotor functions Manual Therapy Techniques to Include: Mobilization, Passive ROM and Soft tissue mobilization For the Purpose of:: To decrease pain, To increase ROM, To improve nutrient delivery to tissue, To improve muscle performance and motor function, To improve ability to perform ADL's, To increase tolerance to activity/condition/position, To improve performance and independence with ADL's, To improve health of tissue, To decrease soft tissue restriction and To increase flexibility/ROM Thermo therapy (hot pack): Yes Ultrasound (thermal/non thermal): Yes For the Purpose of:: To decrease pain, To decrease swelling/inflammation, To increase ROM and To improve nutrient delivery to tissue Last Seen Last Seen: This patient was last seen in our office . Pertinent comments regarding their Physical therapy will appear below: At this point I will be discontinuing this patient from physical therapy. I would be happy to see this patient again in the future if found appropriate by the physician. Thank you! Yandy Newton, JESSE Balance/Gait/Functional tests Balance/Special Test Scores Lower Extremity Functional Score: 41
== END 2024-11-23 19:00 | disposition home or self-care (01) ==
LOC: PT 13:00
PROVIDERS: PCP Family Medicine; Referring Provider Family Medicine; Visit Provider Family Medicine
DX: M76.31 Iliotibial band syndrome, right leg (principal); M76.32 Iliotibial band syndrome, left leg
CPT/HCPCS: 97110; 97140; 97162

== ENCOUNTER → 2025-03-20 | Outpatient (CLI) | payer OTHER, SELFPAY ==
[2025-03-20 15:02] LABS: Hematocrit 42.8 % (37-47); Hemoglobin 13.7 g/dL (12.0-15.0); Immature Granulocytes Count 0.050 X10^3/uL (0.0-0.0); Mean Corp Hgb Conc 32.0 g/dL (32-36); Mean Corpuscular Volume 82.9 fL (81-99); Mean Platelet Vol. 11.1 fl (6.2-12.0); NRBC Flagged by Analyzer 0 % (0-5); Platelet Count 342 K/mm3 (150-450); RBC Distribution Width CV 13.3 % (11.6-14.6); RBC Distribution Width SD 40.7 fl (35.1-43.9); Red Blood Count 5.16 M/mm3 (4.2-5.4); White Blood Count 7.8 K/mm3 (4.4-11.0)
[2025-03-20 15:41] LABS: AST(SGOT) 32 U/L (<=31); Alanine Aminotransfer ALT/SGPT 49 U/L (<=34); Albumin, Serum 4.3 g/dL (3.5-5.0); Alkaline Phosphatase 142 U/L (35-104); Anion Gap 13 (5-15); BUN 12 mg/dL (4-19); BUN/Creat Ratio 16.2 RATIO (10-20); Calcium,Total 9.9 mg/dL (7.6-11.0); Carbon Dioxide 24.5 mmol/L (21.0-32.0); Chloride 103 mmol/L (98-108); Ferritin 58 ng/mL (22-378); Globulin 3.0 g/dL (2.2-4.2); Glucose 77 mg/dL (70-99); Iron 61 ug/dL (50-170); Potassium 4.2 mmol/L (3.3-5.1); Vitamin D,25 Hydroxy 66.4 ng/mL (30-100)
[2025-03-20 15:58] LABS: Cholesterol 296 mg/dL (<=200); Low Density Lipoprotein Calc. 196 mg/dL; Triglycerides 124 mg/dL; Very Low Density Lipoprotein 25 mg/dL (5-40); cholesterol:hdl ratio screen 3.80
== END | disposition home or self-care (01) ==
LOC: MFPLAB 11:29
PROVIDERS: PCP Family Medicine; Visit Provider Family Medicine
DX: D64.9 Anemia, unspecified (principal); E78.5 Hyperlipidemia, unspecified
CPT/HCPCS: 36415; 80053; 80061; 82306; 82728; 83540; 85025